=== PATIENT | male | born 2000 | race Hispanic/Latino ===

== ENCOUNTER 2021-11-29 11:18 | Outpatient (CLI) | payer BC | END 2021-11-29 11:19 | disposition home or self-care (01) | LOC: CSHULT 11:18 | PROVIDERS: ATTEND Hospitalist | DX: R74.8 Abnormal levels of other serum enzymes (principal); M05.79 Rheumatoid arthritis with rheumatoid factor of multiple sites without organ or systems involvement; R76.0 Raised antibody titer; K76.0 Fatty (change of) liver, not elsewhere classified; R16.0 Hepatomegaly, not elsewhere classified | CPT/HCPCS: 76700 ==